=== PATIENT | male | born 1980 | race Caucasian/White ===

== ENCOUNTER 2018-08-09 08:17 | Day surgery (SDC) | payer OTHER ==
[2018-08-09] VITALS (10 sets, daily range): BP systolic 97–124; BP diastolic 60–79; PULSE 82–94; RESP 13–21; Ht 167.6 cm; Wt 113.1 kg
[~2018-08-09] VITALS: Ht 167.6 cm; Wt 113.1 kg
--- NOTE | 2018-08-09 08:41 | HPN ---
Date/Time of Note Date/Time of Note DATE: 08/09/18 TIME: 08:41 Interval H&P Admission Note Pt. seen H&P reviewed: No system changes SILVIA TOSCANO MD Aug 09, 2018 08:41
[2018-08-09] MEDS ORDERED: SOD CHLORIDE 0.9% 1,000 ML IV SCH (09:00)
[2018-08-09] MEDS ORDERED: METH10SO PO (09:11)
[2018-08-09] MEDS ORDERED: BUME2TAB2 PO (09:12)
[2018-08-09] MEDS ORDERED: BENA20TA4 PO (09:12)
[2018-08-09] MEDS ORDERED: LIDOCAINE 1% (MPF) 5 ML VIAL ONE (10:41)
[2018-08-09] MEDS ORDERED: FENTAnyl 50 MCG/ML VIAL ONE (10:41)
[2018-08-09] MEDS ORDERED: GELATIN 12MM X 7 MM SPONGE ONE (10:41)
[2018-08-09] MEDS ORDERED: MIDAZOLAM 1 MG/ML 2 ML INJ ONE (10:41)
== END 2018-08-09 13:58 | disposition home or self-care (01) ==
LOC: SDS 08:17
PROVIDERS: ATTEND Internal Medicine
DX: N17.0 Acute kidney failure with tubular necrosis (principal); E85.89 Other amyloidosis
CPT/HCPCS: 50200; 77012; J2250; J3010; Z7610

== ENCOUNTER 2018-12-10 09:09 | Day surgery (SDC) | payer OTHER ==
[~2018-12-10] VITALS: Ht 167.6 cm; Wt 99.0 kg
[~2018-12-10 09:09] MED LIST: BENA20TA4 PO; BUME2TAB2 PO; METH10SO PO
[2018-12-10 09:47] VITALS: Ht 167.6 cm; Wt 99.0 kg
[2018-12-10 09:48] VITALS: BP 108/68; PULSE 72; RESP 16
[2018-12-10] MEDS ORDERED: METH10SO PO (10:08)
[2018-12-10] MEDS ORDERED: FENTAnyl 50 MCG/ML VIAL ONE (12:07)
[2018-12-10] MEDS ORDERED: MIDAZOLAM 1 MG/ML 2 ML INJ ONE (12:08)
[2018-12-10] MEDS ORDERED: LIDOCAINE 1% (MPF) 5 ML VIAL ONE (12:09)
[2018-12-10] MEDS ORDERED: CEFAZOLIN 1 GM INJ ONE (13:22)
[2018-12-10] MEDS ORDERED: PROPOFOL 20 ML ONE (13:52)
[2018-12-10] MEDS ORDERED: PROVENTIL HFA 6.7GM INHALER ONE (13:52)
[2018-12-10 14:35] VITALS: BP 102/56; PULSE 71; RESP 18
--- NOTE | 2018-12-12 10:59 | HPN ---
Date/Time of Note Date/Time of Note DATE: 12/12/18 TIME: 10:58 Interval H&P Admission Note Pt. seen H&P reviewed: No system changes MARIANELA LAINEZ MD Dec 12, 2018 10:59
== END 2018-12-10 16:14 | disposition home or self-care (01) ==
LOC: SDS 09:09
PROVIDERS: ATTEND Nuclear Medicine
DX: E85.9 Amyloidosis, unspecified (principal); D61.818 Other pancytopenia; N18.9 Chronic kidney disease, unspecified; E55.9 Vitamin D deficiency, unspecified
CPT/HCPCS: 38221; 77012; 88305; 88311; 88313; J2250; J3010; Z7610; J0690